=== PATIENT | female | born 1975 | race Caucasian/White ===

== ENCOUNTER → 2023-05-02 15:04 | Outpatient (REF) | payer OTHER, SELFPAY | LOC: WDC 15:04 | PROVIDERS: ATTENDING PHYSICIAN Nurse Practitioner Family; FAMILY PHYSICIAN Internal Medicine | DX: Z12.31 Encounter for screening mammogram for malignant neoplasm of breast (principal) | CPT/HCPCS: 77063; 77067 ==

== ENCOUNTER → 2023-06-29 10:47 | Outpatient (REF) | payer OTHER, SELFPAY | LOC: RAD 10:47 | PROVIDERS: ATTENDING PHYSICIAN Nurse Practitioner | DX: J06.9 Acute upper respiratory infection, unspecified (principal) | CPT/HCPCS: 71046 ==

== ENCOUNTER 2023-08-07 07:25 | Emergency (ER) | payer OTHER, SELFPAY ==
[2023-08-07 07:41] VITALS: BP 159/99
--- NOTE | 2023-08-07 08:19 | ED.GENMED ---
History of Present Illness
General
Chief Complaint: Eye Problems
Time Seen by Provider: 08/07/23 08:10
Travel History
Have you had any contact with someone who has COVID-19?: No
Do you have any symptoms of coronavirus? Fever > 100 degrees, chills, cough, shortness of breath, sore throat, loss of taste or smell, muscle aches, or headache?: No
History of Present Illness
History of Present Illness:
47-year-old female with no significant past medical history presents to the emergency department for evaluation of redness and swelling to the right eye associated with purulent discharge. She notes she has had some nasal congestion and coughing
over the past 3 to 4 days, also was recently prescribed contact lenses and she started using these yesterday. She wore them for about 2 hours before removing them. She reports mildly blurry vision in the right eye. Denies any fevers or chills.
No photophobia.
Past History
Past History
ED Past Medical History: None; Negative Hypercholesterolemia, IDDM, NIDDM or UT
ED Past Surgical History: Appendectomy
Social History
Tobacco: Non-smoker
Alcohol: Daily
Personal:
Living: with family
Employment: Employed
Family History
Family History: Hypertension
Review of Systems
Review of Systems
Allergies reviewed?: Yes
All Other Systems: ROS reviewed and negative except as documented in HPI and ROS
Phy Exam
Physical Exam
Physical Exam:
GEN: Well appearing, NAD, WDWN
HEENT: Oral mucosa moist, no scleral icterus
Eyes: Moderate conjunctival injection and periorbital swelling on the right, normal extraocular motion without deficit. Small amount of purulent discharge to the left on the right. No fluorescein dye uptake or evidence of corneal abrasion,
anterior chamber is quiet on the right
Cardiac: Regular rate
Lung: No respiratory distress, no tachypnea
MSK: No gross deformity or injuries
Skin: Good color, no pallor or jaundice, no rashes
Neuro: AO x3, moves all extremities freely
Psych: Calm, cooperative
Course
Orders/Labs/Results
Orders:
Orders
08/07/23 08:10
Tetracaine HCl [Tetracaine 0.5% Ophthalmic Solution] 1 drop .ROUTE .STK-MED ONE
08/07/23 08:37
Purified Water Eye Wash [Dacriose Eye Wash Solution] 120 ml .ROUTE .STK-MED ONE
Vital Signs
Initial and Last Documented VS:
Initial Vital Signs
Temp Pulse BP Pulse Ox
98.7 F 98 159/99 98
08/07/23 07:41 08/07/23 07:41 08/07/23 07:41 08/07/23 07:41
Last Documented Vital Signs
Temp Pulse Resp BP Pulse Ox
98.7 F 84 20 124/76 99
08/07/23 07:41 08/07/23 08:42 08/07/23 08:42 08/07/23 08:42 08/07/23 08:42
MDM/Problems Addressed
MDM/Problems Addressed:
Patient's symptoms are very likely due to contact irritation in the setting of new contact lens use however cannot lateral in nature given URI symptoms. Return antibiotics, fluorescein stain reveals no corneal abnormalities
*Critical Care Note
Total Time (30-74mins, 75-104mins- exclusive of procedures): Not Applicable
ED Attending Note
-
Portions of this chart may have been created with voice recognition software.� Occasional wrong word or��sound alike� substitutions may have occurred due to the inherent limitations of voice recognition software.
Discharge Plan
Departure
Patient Disposition: Home (Routine Discharge)
Date of Disposition: 08/07/23
Time of Disposition: 08:20
Patient with high blood pressure during this ER visit?: No
Discharge Problem:
Conjunctivitis
Instructions: Conjunctivitis (Noninfectious Pinkeye)
Prescriptions:
New
ofloxacin 0.3 % drops
2 drp ophthalmic (eye) QID 5 Days Qty: 10 0RF
No Action
alprazolam [Xanax] 0.5 MG tablet
0.5 mg PO BID PRN (Reason: anxiety)
Patient Comments:
12/13/2021: last filled 09/27/21, 60 tabs for 30 days from [facility]
Multiple Vitamin-Minerals 1 TAB tablet
1 tab PO DAILY
pantoprazole [Protonix] 40 mg tablet,delayed release (DR/EC)
40 mg PO BID 30 Days Qty: 60 1RF
sucralfate 100 mg/mL Suspension
1 g PO ACHS 30 Days Qty: 1200 0RF
simethicone [Gas Relief 80 (simethicone)] 80 mg Tablet,Chewable
80 mg PO QIDPRN PRN (Reason: gas) 15 Days Qty: 60 0RF
Activity Restrictions/Additional Instructions:
Do not wear contact lenses for 1 week
If symptoms recur after restarting contact lens use it is likely the irritant/contact reaction to either the solution lenses
Your symptoms could also be viral due to the respiratory symptoms he developed over the past few days
Use the topical antibiotics in both eyes
Interventions
Interventions:
*Risk Screen - Suicide Last Done: 08/07/23 08:24
*General Assessment Last Done: 08/07/23 08:24
*Neglect/Abuse Screening Last Done: 08/07/23 08:24
*ED COVID-19 Vaccine History Last Done: 08/07/23 07:45
*Nursing Disposition Last Done: 08/07/23 08:42
Discharge Date and Time
Discharge Date/Time: 08/07/23 08:43
Print Language: FRENCH
[2023-08-07 08:42] VITALS: BP 124/76
== END 2023-08-07 08:43 | disposition home or self-care (01) ==
LOC: EMR 07:25
PROVIDERS: EMERGENCY PHYSICIAN Emergency Medicine; FAMILY PHYSICIAN Internal Medicine
DX: H10.9 Unspecified conjunctivitis (principal)
CPT/HCPCS: 99283

== ENCOUNTER → 2024-07-30 19:37 | Outpatient (REF) | payer OTHER, SELFPAY | LOC: WDC 19:37 | PROVIDERS: ATTENDING PHYSICIAN Nurse Practitioner Family; FAMILY PHYSICIAN Internal Medicine | DX: Z12.31 Encounter for screening mammogram for malignant neoplasm of breast (principal) | CPT/HCPCS: 77063; 77067 ==